=== PATIENT | male | born 1980 | race Caucasian/White ===

== ENCOUNTER 2018-10-07 12:42 | Observation (INO) | payer OTHER ==
[~2018-10-07] VITALS: Ht 172.7 cm; Wt 92.5 kg
[2018-10-07] MEDS ORDERED: ONDANSETRON 4MG/2ML VIAL (J2405) As Ordered ONE (12:50)
[2018-10-07] MEDS ORDERED: NS 1,000 ML IV ONE ×2 (13:00→14:00)
[2018-10-07] MEDS ORDERED: ONDANSETRON 4MG/2ML VIAL (J2405) IV ONE ×2 (13:00→15:00)
[2018-10-07 13:07] LABS: BASO % 0.2 % (0.0-1.0); EOS # 0.1 10^3/uL (0.0-0.50); EOS % 0.6 % (0.0-3.0); HEMATOCRIT 52.8 % (42.0-52.0); HEMOGLOBIN 17.8 g/dl (13.5-17.5); LYMPH # 0.7 10^3/uL (1.5-4.5); LYMPH % 4.8 % (24.0-44.0); MEAN CORPUSCULAR HGB CONC 33.7 g/dl (32.0-36.5); MONO # 0.8 10^3/uL (0.0-0.8); MONO % 5.2 % (0.0-5.0); NEUTROPHILS # 13.3 10^3/uL (1.8-7.7); NEUTROPHILS % 88.8 % (36.0-66.0); PLATELET COUNT, AUTOMATED 247 10^3/uL (150-450); RED BLOOD COUNT 5.93 10^6/uL (4.30-6.10)
[2018-10-07 13:30] LABS: ALBUMIN 4.6 GM/DL (3.2-5.2); ALT/SGPT 45 U/L (12-78); BILIRUBIN,DIRECT 0.1 MG/DL (0.0-0.2); BILIRUBIN,TOTAL 0.5 MG/DL (0.2-1.0); BLOOD UREA NITROGEN 18 MG/DL (7-18); CALCIUM LEVEL 9.1 MG/DL (8.5-10.1); CARBON DIOXIDE LEVEL 26 MEQ/L (21-32); CHLORIDE LEVEL 104 MEQ/L (98-107); GLOMERULAR FILTRATION RATE > 60.0 (>60); GLUCOSE, FASTING 135 MG/DL (70-100); LIPASE 668 U/L (73-393); POTASSIUM SERUM 4.5 MEQ/L (3.5-5.1); SODIUM LEVEL 139 MEQ/L (136-145); TOTAL PROTEIN 7.7 GM/DL (6.4-8.2)
[2018-10-07 14:01] LABS: AMYLASE 128 U/L (25-115)
[2018-10-07] MEDS: GASTROGRAFIN SOLUTION 30ML PO SCH ×2 (14:20→15:02)
[2018-10-07] MEDS ORDERED: ISOVUE-370 76% 100ML VIAL (Q9967) As Ordered ONE (15:39)
[2018-10-07] MEDS ORDERED: PROMETHAZINE INJ 25 MG/ML VIAL (J2550) IV ONE (16:15)
--- NOTE | 2018-10-07 16:44 | REP ---
CT abdomen and pelvis with IV and oral contrast: History: Abdomen pain. Elevated lipase. CT contrast dose: 100 ml of intravenous Isovue [address] findings: Digital preliminary benzol operator radiograph demonstrates an essentially gasless abdomen. Flank stripes are intact. There is a small amount of air in the stomach and rectum. The lung bases are clear on axial CT images. There is a small low density area in the right lobe of the liver 1.4 cm in greatest diameter. This may be a small hemangioma or cyst. There is evidence of mild fatty infiltration of the liver as well. No abnormality is noted in the gallbladder. The spleen is unremarkable. No adrenal lesion is seen. The pancreas is morphologically intact. No mass, cyst or edema. No retroperitoneal mass or adenopathy is observed. Minimal vascular calcification is seen in the aorta and iliac vessels in this young patient. Fluid filled loops of small bowel are noted without dilation. Appendix is not definitely identified. There is no CT evidence to suggest appendicitis. Pelvic CT images demonstrate the urinary bladder prostate and seminal vesicles are unremarkable. No abdominal wall defect is seen. No free air or free fluid is noted. Bone window settings demonstrate no bony destructive lesion. Impression: 1.4 cm low density lesion in the liver most consistent with hemangioma. Mild fatty infiltration in the liver. Vascular calcification. No acute abdominal abnormality. Pancreas is morphologically unremarkable. Electronically Signed by Hang Connell MD 10/07/2018 04:36 P
[2018-10-07] MEDS ORDERED: ONDANSETRON 4MG/2ML VIAL (J2405) IV PRN (17:15)
[2018-10-07] MEDS: NS 1,000 ML IV SCH (18:19)
[2018-10-07 19:00] VITALS: BP 142/82
[2018-10-07] MEDS: ENOXAPARIN 40 MG/0.4 ML SYRINGE (J1650) SC SCH (19:58)
[2018-10-07 20:00] VITALS: BP 142/82
[2018-10-07 23:59] VITALS: BP 140/74
[2018-10-08] MEDS: NS 1,000 ML IV SCH ×3 (01:05→18:16)
[2018-10-08 04:00] VITALS: BP 121/69
[2018-10-08 05:37] LABS: BASO % 0.4 % (0.0-1.0); EOS % 0.3 % (0.0-3.0); HEMATOCRIT 43.8 % (42.0-52.0); LYMPH # 0.7 10^3/uL (1.5-4.5); LYMPH % 9.2 % (24.0-44.0); MEAN CORPUSCULAR HEMOGLOBIN 29.7 pg (27.0-33.0); MEAN CORPUSCULAR VOLUME 87.3 fl (80.0-96.0); MONO # 0.7 10^3/uL (0.0-0.8); MONO % 9.4 % (0.0-5.0); NEUTROPHILS # 5.9 10^3/uL (1.8-7.7); NEUTROPHILS % 80.4 % (36.0-66.0); PLATELET COUNT, AUTOMATED 191 10^3/uL (150-450); RED BLOOD COUNT 5.02 10^6/uL (4.30-6.10); WHITE BLOOD COUNT 7.3 10^3/uL (4.0-10.0)
[2018-10-08 05:44] LABS: HEMOGLOBIN 14.9 g/dl (13.5-17.5)
[2018-10-08 05:54] LABS: ALBUMIN 3.3 GM/DL (3.2-5.2); ALT/SGPT 42 U/L (12-78); AMYLASE 54 U/L (25-115); BILIRUBIN,TOTAL 0.3 MG/DL (0.2-1.0); BLOOD UREA NITROGEN 11 MG/DL (7-18); CALCIUM LEVEL 8.1 MG/DL (8.5-10.1); CARBON DIOXIDE LEVEL 26 MEQ/L (21-32); CHLORIDE LEVEL 107 MEQ/L (98-107); CREATININE FOR GFR 1.18 MG/DL (0.70-1.30); GLOMERULAR FILTRATION RATE > 60.0 (>60); GLUCOSE, FASTING 116 MG/DL (70-100); LIPASE 143 U/L (73-393); POTASSIUM SERUM 4.1 MEQ/L (3.5-5.1); SODIUM LEVEL 140 MEQ/L (136-145); TOTAL PROTEIN 6.2 GM/DL (6.4-8.2)
--- NOTE | 2018-10-08 07:32 | HPE ---
DATE OF ADMISSION: 10/07/2018 PRIMARY CARE PROVIDER: [facility] ATTENDING PHYSICIAN: [facility] ADMISSION DIAGNOSIS: Intractable nausea and vomiting with vasovagal episode and 5 to 10 second pause on telemetry. HISTORY OF PRESENT ILLNESS: Fernando Hubbard is a 38-year-old who presented to the emergency room with intractable nausea and vomiting. He was hydrated and given antiemetics. After having a vomiting episode, he had a vagal event where he became bradycardic and then had a 5 to 10 second pause on telemetry that resolved with Trendelenburg and fluid bolus. He is being admitted for observation. He ate out twice yesterday, once at a dining establishment at [employer] and once at a sub shop. No one else who ate there is sick. Apparently, there are some ill individuals on [place] with a viral gastroenteritis per patient. PAST MEDICAL HISTORY: Negative. SOCIAL HISTORY: . Nonsmoker. Active duty . MEDICATIONS: None. ALLERGIES: - PENICILLIN - SULFA REVIEW OF SYSTEMS: No hematemesis, rectal bleeding, history of seizures, history of syncope. PHYSICAL EXAMINATION: Vital signs per flow sheet. When I saw him, blood pressure was 119/70 with a pulse of 92, respiratory rate 18, and 99% oxygen saturation. General Appearance: He is in Trendelenburg, but looked well, smiling and interactive. HEENT: Unremarkable. Pupils equal round and react to light. TMs and oropharynx benign. Neck no masses. Lungs: Clear. Heart: Without murmur. Abdomen: Soft. Nontender. No masses. No peripheral edema. Neurologic Exam: Nonfocal. CT of the abdomen of the abdomen and pelvis was normal except for a 4 cm lesion in the liver, probably hemangioma. Mild fatty infiltration noted. Pancreas was normal. LABS: White count 15,000, hemoglobin 17.8, platelets 274. Sodium 139, potassium 4.5, BUN 18, creatinine 1.3, lactic acid 2.1, amylase slightly elevated at 128, lipase 668. IMPRESSION: 1. Intractable nausea and vomiting, suspect viral gastroenteritis. Stool has been sent for GI panel. From what I understand, there is a [place] virus being seen sporadically in the area. IV fluids have been ordered. Antiemetics have been ordered. 2. Vasovagal episode with pause. The patient is very well conditioned and I suspect this was just physiologic related to his low resting heart rate and vagal event. 3. Mildly elevated amylase and lipase. I suspect this was from repetitive vomiting. He does not have pancreatitis on CT of the abdomen and pelvis. Repetitive vomiting can raise amylase and lipase without pancreatitis being present. Followup amylase and lipase ordered for tomorrow. The patient is being admitted to observation status with the hospitalist following him.
[2018-10-08 08:00] VITALS: BP 138/75
[2018-10-08] MEDS: ENOXAPARIN 40 MG/0.4 ML SYRINGE (J1650) SC SCH (09:37)
[2018-10-08 09:46] LABS: MAGNESIUM LEVEL 1.7 MG/DL (1.8-2.4)
[2018-10-08] MEDS ORDERED: MAG SULF 1GM/100ML (MAG RUN) 1 GM in APPROPRIATE DILUENT 1 EA IV ONE (10:00)
--- NOTE | 2018-10-08 11:07 | IPNPDOC ---
Text Note Date of Service The patient was seen on 10/08/18. NOTE Subjective: Patient is a 38-year-old male with no significant past medical history who presented to the emergency room with complaints of intractable nausea and vomiting. In the emergency room, patient was found to have signs of dehydration. He had imaging completed in emergency room that was unremarkable. While in the emergency room, patient had a bradycardic episode and a +5-10 seconds while on telemetry . Patient was admitted to hospitalist service for further evaluation and treatment. Patient was seen and examined at the bedside. Currently patient notes that his vomiting has resolved, however he still experiences nausea and this has improved with Zofran. Patient denies any abdominal pain. Denies chest pain, shortness of breath or palpitations. He has experienced a few bowel movements and has described them as loose. Denies any urinary discomfort. Objective: Vitals (See below) General: Lying in bed, muscular build, no acute distress, comfortable, AAOx3 HEENT: NC, AT CVS: RRR, +S1S2 Lungs: Fair air entry b/l, -w/r/r Abdomen: Soft, ND, NT Extremities: - Edema, - Calf tenderness Assessment and plan: Intractable nausea and vomiting associated with diarrhea - likely 2/2 gastroenteritis - likely 2/2 viral etiology - Patient has presented to the emergency room after experiencing intractable nausea and vomiting over the last 1 day - Physical does not reveal any abdominal tenderness - Patient remains hemodynamically stable and afebrile - Leukocytosis has resolved; lactic acidosis has resolved - GI panel 10/08: Pending - Patient initially had an elevated amylase / lipase; however, with only 1 of 3 criteria for acute pancreatitis, this is likely a result of his nausea and vomiting - CT abdomen/pelvis 10/07: 1.4 cm low density lesion in the liver most consistent with hemangioma. Mild fatty infiltration in the liver. Vascular calcification. No acute abdominal abnormality. Pancreas is morphologically unremarkable. - c/w symptomatic control - Will reduce rate of IV fluids Bradycardia with 5-10 seconds pause - likely 2/2 vagal response from nausea and vomiting - Patient is very well conditioned and is likely physiologic - Will discontinue telemetry monitoring and transition patient to medical surgical floor telemetry Hypomagnesemia - Will supplement DVT prophylaxis - c/w Lovenox VS,Fishbone, I+O VS, Fishbone, I+O Laboratory Tests 10/07/18 13:01 Red Blood Count 5.93, Mean Corpuscular Volume 89.0, Mean Corpuscular Hemoglobin 30.0, Mean Corpuscular Hemoglobin Concent 33.7, Red Cell Distribution Width 12.3, Neutrophils (%) (Auto) 88.8 H, Lymphocytes (%) (Auto) 4.8 L, Monocytes (%) (Auto) 5.2 H, Eosinophils (%) (Auto) 0.6, Basophils (%) (Auto) 0.2, Neutrophils # (Auto) 13.3 H, Lymphocytes # (Auto) 0.7 L, Monocytes # (Auto) 0.8, Eosinophils # (Auto) 0.1, Basophils # (Auto) 0.0 10/08/18 05:08 Red Blood Count 5.02, Mean Corpuscular Volume 87.3, Mean Corpuscular Hemoglobin 29.7, Mean Corpuscular Hemoglobin Concent 34.0, Red Cell Distribution Width 12.6, Neutrophils (%) (Auto) 80.4 H, Lymphocytes (%) (Auto) 9.2 L, Monocytes (%) (Auto) 9.4 H, Eosinophils (%) (Auto) 0.3, Basophils (%) (Auto) 0.4, Neutrophils # (Auto) 5.9, Lymphocytes # (Auto) 0.7 L, Monocytes # (Auto) 0.7, Eosinophils # (Auto) 0.0, Basophils # (Auto) 0.0, Calcium Level 8.1 L, Aspartate Amino Transf (AST/SGOT) 23, Alanine Aminotransferase (ALT/SGPT) 42, Alkaline Phosphatase 45, Total Bilirubin 0.3, Total Protein 6.2 L, Albumin 3.3 # Vital Signs Date Time Temp Pulse Resp B/P (MAP) Pulse Ox O2 Delivery O2 Flow Rate FiO2 10/08/18 08:00 97.4 94 19 138/75 (96) 97 10/07/18 17:45 Room Air I&O- Last 24 Hours up to 6 AM 10/08/18 06:00 Intake Total 2860 ml Output Total 0 ml Balance 2860 ml LILLIAN CABRAL MD Oct 08, 2018 11:07
[2018-10-08 12:00] VITALS: BP 125/77
[2018-10-08 22:00] VITALS: BP 141/80
[2018-10-09 02:00] VITALS: BP 130/82
[2018-10-09 06:00] VITALS: BP 146/85
[2018-10-09] MEDS: NS 1,000 ML IV SCH (06:19)
[2018-10-09 06:23] LABS: HEMATOCRIT 42.7 % (42.0-52.0); HEMOGLOBIN 14.3 g/dl (13.5-17.5); MEAN CORPUSCULAR HEMOGLOBIN 29.9 pg (27.0-33.0); MEAN CORPUSCULAR HGB CONC 33.5 g/dl (32.0-36.5); MEAN CORPUSCULAR VOLUME 89.1 fl (80.0-96.0); PLATELET COUNT, AUTOMATED 187 10^3/uL (150-450); RED BLOOD COUNT 4.79 10^6/uL (4.30-6.10)
[2018-10-09 06:39] LABS: BLOOD UREA NITROGEN 8 MG/DL (7-18); CALCIUM LEVEL 8.1 MG/DL (8.5-10.1); CARBON DIOXIDE LEVEL 27 MEQ/L (21-32); CHLORIDE LEVEL 108 MEQ/L (98-107); CREATININE FOR GFR 1.14 MG/DL (0.70-1.30); GLOMERULAR FILTRATION RATE > 60.0 (>60); GLUCOSE, FASTING 100 MG/DL (70-100); MAGNESIUM LEVEL 1.9 MG/DL (1.8-2.4); POTASSIUM SERUM 3.7 MEQ/L (3.5-5.1); SODIUM LEVEL 140 MEQ/L (136-145)
[2018-10-09] MEDS ORDERED: DICY10CA13 PO (07:45)
[2018-10-09] MEDS ORDERED: ZOFR4TAB16 PO (07:45)
[2018-10-09] MEDS: ENOXAPARIN 40 MG/0.4 ML SYRINGE (J1650) SC SCH (08:06)
--- NOTE | 2018-10-09 10:45 | DS.PDOC ---
Discharge Summary General Date of Admission Oct 07, 2018 at 17:03 Date of Discharge 10/09/2018 Discharge Summary PROCEDURES PERFORMED DURING STAY: [None]. ADMITTING DIAGNOSES / DISCHARGE DIAGNOSES: s/p Intractable nausea and vomiting associated with diarrhea - likely 2/2 gastroenteritis - likely 2/2 viral etiology Bradycardia with 5-10 seconds pause - likely 2/2 vagal response from nausea and vomiting s/p Hypomagnesemia DVT prophylaxis COMPLICATIONS/CHIEF COMPLAINT: Nausea / Vomiting / Diarrhea HISTORY OF PRESENT ILLNESS: Patient is a 38-year-old male with no significant past medical history who presented to the emergency room with complaints of intractable nausea and vomiting. In the emergency room, patient was found to have signs of dehydration. He had imaging completed in emergency room that was unremarkable. While in the emergency room, patient had a bradycardic episode and a +5-10 seconds while on telemetry . Patient was admitted to hospitalist service for further evaluation and treatment. HOSPITAL COURSE: s/p Intractable nausea and vomiting associated with diarrhea - likely 2/2 gastroenteritis - likely 2/2 viral etiology - Patient has noted resolution of nausea and vomiting; noted the diarrhea has begun to subside - Physical , again without any specific findings - Patient remains hemodynamically stable and afebrile - s/p Leukocytosis and Lactic acidosis - GI panel 10/08: Norovirus - Patient initially had an elevated amylase / lipase; however, with only 1 of 3 criteria for acute pancreatitis, this is likely a result of his nausea and vomiting - CT abdomen/pelvis 10/07: 1.4 cm low density lesion in the liver most consistent with hemangioma. Mild fatty infiltration in the liver. Vascular calcification. No acute abdominal abnormality. Pancreas is morphologically unremarkable. - c/w symptomatic control - Will DC IV fluids Bradycardia with 5-10 seconds pause - likely 2/2 vagal response from nausea and vomiting - Patient is very well conditioned and is likely physiologic - s/p Telemetry monitoring s/p Hypomagnesemia DVT prophylaxis - c/w Lovenox DISCHARGE MEDICATIONS: Please see below. ALLERGIES: Please see below. PHYSICAL EXAMINATION ON DISCHARGE: Vitals (See below) General: Lying in bed, muscular build, no acute distress, comfortable, AAOx3 HEENT: NC, AT CVS: RRR, +S1S2 Lungs: Fair air entry b/l, no evidence of wheezing, rhonchi, rales Abdomen: Abdomen is soft, without any distention or tenderness Extremities: No evidence of edema, - Calf tenderness LABORATORY DATA: Please see below. ACTIVITY: [As tolerated]. DISCHARGE PLAN: Follow up with PCP at [facility] within 7 days Remain compliant with treatment plan and medications Return to the ER if you experience any problems DISPOSITION: Home, Self-Care. DISCHARGE CONDITION: [Stable]. TIME SPENT ON DISCHARGE: Greater than [35] minutes. Vital Signs/I&Os Vital Signs Date Time Temp Pulse Resp B/P (MAP) Pulse Ox O2 Delivery O2 Flow Rate FiO2 10/09/18 06:00 98.1 81 18 146/85 (105) 96 10/07/18 17:45 Room Air I&O- Last 24 Hours up to 6 AM 10/09/18 06:00 Intake Total 1320 ml Output Total 0 ml Balance 1320 ml Laboratory Data Labs 24H Laboratory Tests 2 10/09/18 05:39: Nucleated Red Blood Cells % (auto) 0.0, Anion Gap 5L, Glomerular Filtration Rate > 60.0, Blood Urea Nitrogen 8, Creatinine 1.14, Sodium Level 140, Potassium Level 3.7, Chloride Level 108H, Carbon Dioxide Level 27, Calcium Level 8.1L, Magnesium Level 1.9 CBC/BMP Laboratory Tests 10/09/18 05:39 Red Blood Count 4.79, Mean Corpuscular Volume 89.1, Mean Corpuscular Hemoglobin 29.9, Mean Corpuscular Hemoglobin Concent 33.5, Red Cell Distribution Width 12.4, Calcium Level 8.1 L Microbiology Microbiology 10/08/18 Gastrointestinal Tract Panel (PCR) - Final, Complete Norovirus Discharge Medications Scheduled PRN Dicyclomine HCl (Dicyclomine HCl) 10 Mg Capsule, 1 CAP PO Q8HP PRN for abdominal cramping Ondansetron HCl (Zofran) 4 Mg Tablet, 4 MG PO Q6-8HP PRN for nausea/vomiting Allergies Coded Allergies: Penicillins (Verified Allergy, Unknown, hives, 10/07/18) Sulfa (Sulfonamide Antibiotics) (Verified Allergy, Unknown, hives, 10/07/18) LILLIAN CABRAL MD Oct 09, 2018 10:45
== END 2018-10-09 09:00 | disposition home or self-care (01) ==
LOC: EDBD 12:42 → M ED 12:42 → M ED INP 17:03 → M PCU 19:10 → M MS5PR 10-08 11:47
PROVIDERS: ADMIT Family Medicine; ATTEND Internal Medicine
DX: K52.9 Noninfective gastroenteritis and colitis, unspecified (principal); E86.0 Dehydration; R00.1 Bradycardia, unspecified; R55 Syncope and collapse; E83.42 Hypomagnesemia; Z88.0 Allergy status to penicillin; Z88.2 Allergy status to sulfonamides
CPT/HCPCS: 36415; 74177; 80048; 80053; 80076; 82150; 83605; 83690; 83735; 85025; 85027; 87507; 93041; 96361; 96374; 96375; 96376; 99285; J1650; J2405; J3475; Q9963; Q9967